=== PATIENT | female | born 1990 | race African-American/Black ===

== ENCOUNTER 2024-03-04 12:11 | Inpatient (IN) | payer OTHER ==
[2024-03-04 15:29] VITALS: BMI 21.4
[2024-03-04] MEDS ORDERED: hydrOXYzine PAMOATE 25 MG CAPSULE (FP) PO PRN (17:45)
[2024-03-04] MEDS ORDERED: BENZONATATE 200 MG CAPSULE PO PRN (17:45)
[2024-03-04] MEDS ORDERED: guaiFENesin 600 MG TABLET.ER (FP) PO PRN (17:45)
[2024-03-04] MEDS ORDERED: LOPERAMIDE HCL 2 MG CAPSULE PO PRN (17:45)
[2024-03-04] MEDS ORDERED: P-EPHED 60MG/TRIPROLIDI 2.5MG TABLET PO PRN (17:45)
[2024-03-04] MEDS: amLODIPine BESYLATE 5 MG TABLET (FP) PO ONE (19:25)
[2024-03-04 20:46] LABS: EPI CELLS 11 /uL (0-25.1); HYALINE CASTS 2 /uL (0-3.1); URINE APPEARANCE CLOUDY; URINE BACTERIA >9,000 /uL (0-1359); URINE BILIRUBIN NEGATIVE (NEGATIVE); URINE COLOR YELLOW; URINE GLUCOSE (UA) NEGATIVE (NEGATIVE); URINE KETONE TRACE (NEGATIVE); URINE LEUK ESTERASE 1+ (NEGATIVE); URINE NITRITE NEGATIVE (NEGATIVE); URINE PROTEIN NEGATIVE (NEGATIVE); URINE RBC 7 /uL (0-23.9); URINE UROBILINOGEN 0.2 mg/dL (0.2-1.0); URINE WBC 138 /uL (0-25.8)
[2024-03-04] MEDS: THIAMINE 100 MG TABLET PO SCH (22:15)
[2024-03-04] MEDS: MELATONIN 5 MG TABLETS PO SCH (22:15)
[2024-03-04] MEDS: TUBERCULIN PPD 5 TU/0.1ML SYRINGE (IN PATIENT USE ONLY) ID ONE (23:15)
[2024-03-05] MEDS: PRENATAL VITAMINS W/ FOLIC ACID TABLET (FP) PO SCH (09:42)
[2024-03-05 15:56] LABS: CHLORIDE 104 mmol/L (98-107); POTASSIUM 3.3 mmol/L (3.5-5.1); SODIUM 138 mmol/L (136-145)
[2024-03-05 15:58] LABS: HEMATOCRIT 38.8 % (32.4-45.2); HEMOGLOBIN 13.1 GM/dL (10.7-15.3); MCH 32.3 pg (25.7-33.7); MCHC 33.9 g/dl (32.0-36.0); MEAN CELL VOLUME 95.5 fl (80-96); MEAN PLT VOLUME 9.9 fl (7.5-11.1); PLATELET COUNT 206 10^3/uL (134-434); RBC 4.07 M/mm3 (3.60-5.2); RDW 14.7 % (11.6-15.6); WHITE BLOOD COUNT 7.9 K/mm3 (4.0-10.0)
[2024-03-05 16:08] LABS: ALBUMIN 3.3 g/dl (3.4-5.0); ANION GAP 6 mmol/L (4-13); BLOOD UREA NITROGEN 7.6 mg/dL (7-18); CO2 27 mmol/L (21-32)
[2024-03-05 16:09] LABS: GLUCOSE,RANDOM 89 mg/dL (74-106)
[2024-03-05 16:10] LABS: SGOT/AST 20 U/L (15-37); SGPT/ALT 16 U/L (13-61)
[2024-03-05 16:12] LABS: BILIRUBIN,TOTAL 0.5 mg/dL (0.2-1); CREATININE 0.7 mg/dL (0.55-1.3); TOT PROT 5.6 g/dl (6.4-8.2)
[2024-03-05 16:14] LABS: ALK PHOS 66 U/L (45-117)
[2024-03-05 16:23] LABS: SYPHILIS W/ RPR CONF NON-REACTIVE (NONREACTIVE)
[2024-03-05] MEDS: POTASSIUM CHLORIDE ORAL LIQUID 20 MEQ/15 ML PO ONE (17:34)
[2024-03-05] MEDS: traZODone HCL 50 MG TABLET (FP) PO SCH (22:03)
[2024-03-06] MEDS: FLUoxetine HCL 10 MG CAPSULE PO SCH (10:09)
[2024-03-06 11:41] LABS: INR 1.06 (0.83-1.09); POTASSIUM 3.8 mmol/L (3.5-5.1)
[2024-03-06 12:07] LABS: BLOOD UREA NITROGEN 13.1 mg/dL (7-18); MAGNESIUM 1.9 mg/dL (1.8-2.4)
[2024-03-06 12:10] LABS: CREATININE 0.8 mg/dL (0.55-1.3)
[2024-03-06] MEDS: NALTREXONE HCL 50 MG TABLET PO ONE (16:07)
[2024-03-06] MEDS: NICOTINE POLACRILEX 2 MG LOZENGE BC PRN (21:13)
[2024-03-07] MEDS: CHOLECALCIFEROL (VIT D3) 400 UNIT (10 MCG) TABLET PO SCH (09:54)
[2024-03-07] MEDS: NALTREXONE HCL 50 MG TABLET PO SCH (09:55)
[2024-03-07] MEDS: NICOTINE 14 MG/24 HOURS TOPICAL PATCH TD SCH (09:56)
[2024-03-07] MEDS: NICOTINE POLACRILEX 2 MG GUM BUC PRN (17:36)
[2024-03-09] MEDS: ACETAMINOPHEN 325 MG TABLET (FP) PO PRN (09:48)
[2024-03-10] MEDS: IBUPROFEN 600 MG TABLET (FP) PO PRN (09:56)
[2024-03-10] MEDS: BENZOCAINE/MENTHOL (CHLORASEPTIC ) LOZENGE MM PRN (12:52)
[2024-03-12] MEDS: MAGNESIUM HYDROX 2400MG/30ML ORAL SUSPENSION 30 ML CUP PO PRN (13:35)
[2024-03-12] MEDS: IBUPROFEN 400 MG TABLET (FP) PO PRN (21:42)
[2024-03-13] MEDS: NICOTINE POLACRILEX 4 MG GUM BUC PRN (15:52)
[2024-03-14] MEDS: MAG HYDROX/AL HYDROX/SIMETH 30 ML UNIT-DOSE CUP PO PRN (07:50)
[2024-03-14] MEDS: ONDANSETRON *ODT* 4 MG TABLET SL PRN (09:39)
[2024-03-14] MEDS: NICOTINE 21 MG/24 HOURS TOPICAL PATCH TD SCH (09:40)
[2024-03-14] MEDS: CHLORHEXIDINE GLUCONATE 0.12% 15ML CUP MM SCH (11:50)
[2024-03-14] MEDS: NICOTINE POLACRILEX 4 MG LOZENGE BC PRN (21:33)
[2024-03-17] MEDS: POLYETHYLENE GLYCOL (HEALTHYLAX) 3350 17 GM PACKET PO PRN (21:51)
[2024-03-18 07:09] VITALS: BP 115/77; PULSE 66; RESP 16; TEMP 97.2
== END 2024-03-18 10:55 | disposition home or self-care (01) | DRG 772 ==
LOC: YASAS 12:11 → Y3NR 18:42 → Y5N 03-06 11:44
PROVIDERS: ADMIT Allergy & Immunology; ATTEND Psychiatry & Neurology Pain Medicine
PROC: HZ42ZZZ Group Counseling for Substance Abuse Treatment, Cognitive-Behavioral (ICD-10-PCS; principal; 2024-03-04)
DX: F10.20 Alcohol dependence, uncomplicated (principal); F17.210 Nicotine dependence, cigarettes, uncomplicated; F19.94 Other psychoactive substance use, unspecified with psychoactive substance-induced mood disorder; F41.9 Anxiety disorder, unspecified; E55.9 Vitamin D deficiency, unspecified; G47.00 Insomnia, unspecified; K59.00 Constipation, unspecified; E87.6 Hypokalemia; Z56.0 Unemployment, unspecified; Z59.01 Sheltered homelessness
CPT/HCPCS: 36415; 80048; 80053; 80305; 80307; 81003; 81025; 82140; 82306; 83735; 85027; 85610; 86780; 86803; 87811; 93005; 93010; Q0162